=== PATIENT | female | born 2000 | race Caucasian/White ===

== ENCOUNTER 2020-07-11 04:04 | Emergency (ER) | payer OTHER ==
[~2020-07-11] VITALS: Ht 170.2 cm; Wt 75.0 kg
[2020-07-11 04:24] VITALS: TEMP 98.1
[2020-07-11 05:44] VITALS: BP 119/55; PULSE 97
== END 2020-07-11 06:36 | disposition home or self-care (01) ==
LOC: COL.ER 04:04
DX: R51.9 Headache, unspecified (principal); Z86.69 Personal history of other diseases of the nervous system and sense organs; Z32.02 Encounter for pregnancy test, result negative; Z20.822 Contact with and (suspected) exposure to COVID-19
CPT/HCPCS: J0780; J1200; J1885; J7120